=== PATIENT | female | born 1970 | race Caucasian/White ===

== ENCOUNTER 2018-10-15 21:46 | Emergency (ER) | payer OTHER ==
[2018-10-15] MEDS ORDERED: HYDROmorphone 1 MG/ML Syringe IVPUSH ONE ×2 (21:57→22:19)
[2018-10-15] MEDS ORDERED: Lactated Ringers 1,000 ML IV SCH (22:00)
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
== END 2018-10-15 22:50 | disposition short-term general hospital (02) ==
LOC: VM.ED 21:46
DX: S82.302A Unspecified fracture of lower end of left tibia, initial encounter for closed fracture (principal); S82.832A Other fracture of upper and lower end of left fibula, initial encounter for closed fracture; S82.102A Unspecified fracture of upper end of left tibia, initial encounter for closed fracture; S82.452A Displaced comminuted fracture of shaft of left fibula, initial encounter for closed fracture; W55.32XA Struck by other hoof stock, initial encounter; Z79.899 Other long term (current) drug therapy; V20.5XXA Motorcycle passenger injured in collision with pedestrian or animal in traffic accident, initial encounter; Y92.410 Unspecified street and highway as the place of occurrence of the external cause
CPT/HCPCS: 73590; 96361; 96374; 96376; 99285; J1170; J7120